=== PATIENT | female | born 2000 | race American Indian/Alaskan Native ===

== ENCOUNTER 2018-04-21 13:54 | Emergency (ER) | payer OTHER ==
[2018-04-21 14:11] VITALS: BP 121/64
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
== END 2018-04-21 18:48 | disposition home or self-care (01) ==
LOC: ED 13:54
DX: S05.8X2A Other injuries of left eye and orbit, initial encounter (principal); W51.XXXA Accidental striking against or bumped into by another person, initial encounter; Y93.89 Activity, other specified; Y92.89 Other specified places as the place of occurrence of the external cause; Y99.8 Other external cause status
CPT/HCPCS: 99282

== ENCOUNTER 2018-12-19 17:33 | Inpatient (IN) | payer MEDICAID, OTHER ==
[2018-12-19] MEDS ORDERED: BRETHINE SUB-Q PRN (18:33)
[2018-12-19] MEDS ORDERED: STADOL IV PRN (18:33)
[2018-12-19] MEDS ORDERED: ceFAZolin 2 GM in NACL 0.9% 100 ML IV ONE (18:33)
[2018-12-19] MEDS ORDERED: NARCAN 0.4 MG/1 ML IV PRN (18:33)
[2018-12-19] MEDS ORDERED: MINERAL OIL PO PRN (18:33)
[2018-12-19] MEDS ORDERED: LACTATED RINGERS 1,000 ML IV SCH ×2 (19:00)
[2018-12-19] MEDS ORDERED: ANCEF/STERILE WATER 2 GM/20 ML 2 GM/20 ML SYRINGE IV SCH (19:00)
[2018-12-19] MEDS ORDERED: XYLOCAINE 2% INFILTRATI ONE ×2 (19:00→20:00)
[2018-12-19] MEDS ORDERED: PITOCin/NS 20 UNIT/1000ML DRIP 20 UNITS/1,000 ML BAG IV SCH (19:00)
--- NOTE | 2018-12-19 19:00 | History and Physical Report ---
History of Present Illness Date of admission: 12/19/18 18:28 Chief complaint: "my water broke" History of present illness: 18yo at 38 5/7 weeks presented to L&D complaining of ruptured membranes for 2 hours. She has had NO CARE. She delivered a year ago at [facility], vaginal delivery. She was seen at [facility] at 17 weeks and found to have oligohydramnios of 3cm. She denies any problems this . Past History Past Surgical History: no surgical history Family/Genetic History: none Social history: single - Obstetrical History : 2 Number of Living Children: 1 Medications and Allergies Allergies Allergy/AdvReac Type Severity Reaction Status Date / Time No Known Allergies Allergy Unverified 04/23/18 08:44 Home Medications Medication Instructions Recorded Confirmed Last Taken Type Ciprofloxacin [Ciprofloxacin ORAL 500 mg PO Q12H #14 ml 06/01/15 Unknown Rx LIQ] Ondansetron [Zofran ODT TAB] 4 mg PO Q6H #14 tab.rapdis 06/01/15 Unknown Rx metroNIDAZOLE [Flagyl] 500 mg PO Q8HR #21 tablet 06/01/15 Unknown Rx traMADol [Ultram] 50 mg PO Q6HR PRN #14 tablet 06/01/15 Unknown Rx Acetaminophen/Codeine [Tylenol 1 tab PO Q6H PRN #12 tab 04/21/18 Unknown Rx /Codeine # 3 tab] Polymyxin B Sulf/Trimethoprim 1 drop OP QID #1 drops 04/21/18 Unknown Rx [Polytrim Eye Drops [id number]/0.1%] Active Meds: Active Medications Butorphanol Tartrate (Stadol) 1 mg IV Q2H PRN PRN Reason: Pain, Moderate (4-6) Ephedrine Sulfate (Ephedrine Sulfate) 10 mg IV Q2M PRN PRN Reason: Hypotension Lactated Ringer's (Lactated Ringers) 1,000 mls @ 125 mls/hr IV DIRECT DHRUV Oxytocin/Sodium Chloride (Pitocin/Ns 20 Unit/1000ml Drip) 20 units in 1,000 mls @ 125 mls/hr IV DIRECT DHRUV Cefazolin Sodium (Ancef/Sterile Water 2 Gm/20 Ml) 2 gm in 20 mls @ 40 mls/hr IV PREOP DHRUV Lidocaine (Xylocaine 2%) 20 ml INFILTRATI ONCE ONE Stop: 12/19/18 19:01 Mineral Oil (Mineral Oil) 30 ml PO QHS PRN PRN Reason: Constipation Naloxone HCl (Narcan 0.4 Mg/1 Ml) 0.1 mg IV Q2MIN PRN PRN Reason: Res Rate </= 8 or 02 SAT < 92% Terbutaline Sulfate (Brethine) 0.25 mg SUB-Q ONCE PRN PRN Reason: Hyperstimulation/Hypertonicity - Vital Signs Vital signs: Vital Signs Pulse BP Pulse Ox 93 H 121/67 96 12/19/18 18:09 12/19/18 18:09 12/19/18 18:09 Temp Pulse Resp BP Pulse Ox 98.3 F 89 18 121/67 97 12/19/18 18:30 12/19/18 18:29 12/19/18 18:30 12/19/18 18:09 12/19/18 18:29 - Physical Exam Vulva: both: normal - Obstetrical FHR: auscultation normal Cervical Dilatation: 6 Cervical Effacement Percentage: 90 station: -1 Results All other labs normal. Assessment and Plan This H&P was done and written by Dr. Montgomery. GBS prophylaxis given. - Patient Problems (1) 38 weeks gestation of Current Visit: Yes Status: Acute Plan to address problem: 1. No care labs 2. Augmentation of labor if no cervical change 3. Cephalic presentation 4. Plan NICU present at delivery due to history of oligohydramnios 5. UDS due to no care 6. Plan spontaneous vaginal delivery. (2) No care in current Current Visit: Yes Status: Acute (3) History of oligohydramnios Current Visit: Yes Status: Acute (4) SROM (spontaneous rupture of membranes) Current Visit: Yes Status: Acute
[2018-12-19] MEDS ORDERED: AMPICILLIN/NS 2 GM/100 ML 2 GM/100 ML BAG IV ONE ×2 (19:07→20:00)
[2018-12-19 19:25] LABS: Basophils # (Auto) 0.1 K/mm3 (0.0-0.1); Basophils % (Auto) 0.6 % (0.0-1.8); Eosinophils % (Auto) 0.4 % (0.0-4.3); Hematocrit 34.2 % (30.3-42.9); Hemoglobin 11.3 gm/dl (10.1-14.3); Lymphocytes # (Auto) 1.7 K/mm3 (1.2-5.4); Lymphocytes % (Auto) 18.6 % (13.4-35.0); Mean Corpuscular HGB Conc 33 % (30-34); Mean Corpuscular Volume 86 fl (79-97); Monocytes # (Auto) 0.6 K/mm3 (0.0-0.8); Monocytes % (Auto) 6.6 % (0.0-7.3); Platelet Count 259 K/mm3 (140-440); Red Cell Distribution Width 14.9 % (13.2-15.2)
[2018-12-19 19:50] LABS: Hepatitis C Virus Antibody Non-Reactive (NonReactive)
[2018-12-19] MEDS ORDERED: MILK OF MAGNESIA PO PRN (21:19)
[2018-12-19] MEDS ORDERED: LANSINOH TP PRN (21:19)
[2018-12-19] MEDS ORDERED: TUCKS PAD TP PRN (21:19)
[2018-12-19] MEDS ORDERED: DULCOLAX PR PRN (21:19)
--- NOTE | 2018-12-19 21:32 | Procedure Note ---
OB Delivery Note - Delivery Date of Delivery: 12/19/18 Surgeon: WILBER BOUCHER Estimated blood loss: other (250 cc) - Vaginal Delivery presentation: vertex Delivery position: OA Intrapartum events: precipitous labor- <3hr Delivery induction: none Delivery monitor: external FHT, external uterine Route of delivery: Delivery placenta: spontaneous Delivery cord: 3 umbilical vessels Episiotomy: none Delivery laceration: none Anesthesia: none Delivery comments: Precipitous spontaneous vaginal delivery of liveborn female at 21:00 over intact perineum with apgars of 8/9. Baby bulb suctioned and placed immediately skin to skin with mom after . Spontaneous cry and respirations. 3 vessel cord double clamped and cut and baby taken to radiant warmer to be evaluated by NICU team due to no care and oligohydramnios at 17 week US and no further care or ultrasounds. Spontaneous delivery of intact placenta and membranes; trailing membranes. EBL 250 cc. Pitocin to IV fluids after delivery of placenta. Fundus firm and midline. Vaginal sweep negative. Sponge count correct. No lacerations noted. Mother and baby stable in birthing room.
[2018-12-19] MEDS ORDERED: SODIUM CHLORIDE FLUSH SYRINGE 10 ML IV NR (22:00)
[2018-12-19] MEDS: IBUPROFEN PO SCH (22:12)
--- NOTE | 2018-12-19 23:28 | Ultrasound Report ---
PROCEDURE: US PELVIC LIMITED HISTORY: Check for retained placental fragments or accessor FINDINGS: Real-time ultrasound the pelvis was performed by transabdominal technique. The uterus is large measuring 20.5 x 9.4 x 7.6 cm, consistent with the patient's postgravid state. Th e endometrium is thickened at 3.6 cm. There is an echogenic region within the canal of the uterine rakesh dy, 4.2 x 3.6 x 4.1 cm which does not display color Doppler flow. This could represent blood products in the canal or retained products of conception. The absence of color Doppler flow would be more con sistent with blood products in the canal rather than retained products of conception, but definitive differentiation of these entities cannot be in ascertained with ultrasound. Neither ovary is identified. IMPRESSION: Echogenic region within the canal of uterine body, which could represent retained product of conception or blood products in the canal This document is electronically signed by Jesse Woodward MD., Dec 19 2018 11:27:08 PM ET
[2018-12-20] MEDS: METHERGINE PO SCH ×4 (01:06→18:29)
[2018-12-20] MEDS: IBUPROFEN PO SCH ×3 (03:41→18:29)
[2018-12-20 10:00] LABS: Hematocrit 35.9 % (30.3-42.9); Hemoglobin 11.6 gm/dl (10.1-14.3)
--- NOTE | 2018-12-20 11:34 | Progress Note ---
Assessment and Plan A: day 1 S/P spontaneous vaginal delivery. P: Continue with current management. - Patient Problems (1) 38 weeks gestation of Current Visit: Yes Status: Acute (2) No care in current Current Visit: Yes Status: Acute (3) History of oligohydramnios Current Visit: Yes Status: Acute (4) SROM (spontaneous rupture of membranes) Current Visit: Yes Status: Acute Subjective - Subjective Date of service: 12/20/18 Principal diagnosis: day 1 S/P spontaneous vaginal delivery Interval history: day 1 S/P spontaneous vaginal delivery. Patient is doing well. Patient had trailing membranes at delivery but placenta and membranes appeared intact and bleeding is minimal. US showed possible blood products in canal vs. retained products. No accessory lobe seen on US. Patient is voiding without difficulty, ambulating well, tolerating a regular diet without nausea or vomiting. Patient denies headache, chest pain, cough, shortness of breath, leg pain, or abdominal pain. She denies heavy bleeding or dizziness. She is taking a P.O. Methergine series. Patient reports: appetite normal, voiding normally, pain well controlled, flatus, ambulating normally, no dizzy ambulation, no nauseated : doing well Objective - Vital Signs Latest vital signs: Vital Signs Temp Pulse Resp BP BP Pulse Ox 12/20/18 08:13 98.5 F 63 18 126/68 98 12/20/18 04:47 99.2 F 67 20 128/75 95 12/19/18 23:58 98.6 F 75 20 111/65 94 12/19/18 23:24 97.9 F 12/19/18 23:06 89 113/63 12/19/18 22:52 87 117/69 12/19/18 22:37 90 133/58 12/19/18 22:22 98 H 128/67 12/19/18 22:07 99 H 132/83 12/19/18 21:52 96 H 134/71 12/19/18 21:36 100 H 134/68 12/19/18 21:22 100 H 137/73 12/19/18 19:29 84 106/58 12/19/18 19:27 98.7 F 84 16 106/58 12/19/18 18:30 98.3 F 18 12/19/18 18:29 89 97 12/19/18 18:24 108 H 96 12/19/18 18:19 90 96 12/19/18 18:14 92 H 97 12/19/18 18:09 93 H 121/67 96 Intake and Output 12/19/18 12/20/18 12/20/18 23:59 07:59 15:59 Intake Total 240 200 Output Total 500 Balance 240 -300 Intake: Oral 240 200 Output: Urine 500 Void 500 Other: Total, Intake Amount 240 200 Total, Output Amount 500 Weight 99.79 kg Estimated Blood Loss 250 - Exam Abdomen: Present: normal appearance, soft. Absent: distention, tenderness, guarding, rigidity Uterus: Present: normal, firm, fundal height below umbilicus. Absent: bogginess, tenderness Extremities: Present: normal. Absent: tenderness, edema - Labs Labs: Abnormal lab results 12/19/18 Range/Units 18:58 Seg Neutrophils % 73.8 H (40.0-70.0) %
[2018-12-21] MEDS: METHERGINE PO SCH ×4 (05:12→18:26)
[2018-12-21] MEDS: IBUPROFEN PO SCH ×4 (05:12→16:30)
--- NOTE | 2018-12-21 10:17 | Progress Note ---
Assessment and Plan - Patient Problems (1) Status post normal vaginal delivery Current Visit: Yes Status: Acute Plan to address problem: PPD 2 - stable Continue routine PP orders Anticipate discharge in 24 hours pending f/u pelvic US for retained POC. (2) Retained products of conception after delivery without hemorrhage Current Visit: Yes Status: Acute Plan to address problem: Confirmed on US done 12/19/18 Continue Methergine series (was initiated 12/20/18 @ 01:00) Repeat Pelvic US ordered Subjective - Subjective Date of service: 12/21/18 Principal diagnosis: day 1 S/P spontaneous vaginal delivery Interval history: see H&P, OB Delivery Procedure Note, and PP/REGISTERED MEDICAL TRANSCRIPTIONIST Progress Note Patient reports: appetite normal, voiding normally, pain well controlled, ambulating normally, other (reports heavy lochia without clots after taking Methergine and later moderate bleeding), no dizzy ambulation : doing well, other (breast and bottle feeding) Objective - Vital Signs Latest vital signs: Vital Signs Temp Pulse Resp BP Pulse Ox 12/21/18 07:12 97.8 F 55 L 18 135/77 12/21/18 00:35 98.1 F 55 L 18 126/75 96 12/20/18 17:10 98.1 F 65 18 139/85 97 12/20/18 12:05 98.9 F 63 18 119/81 96 Intake and Output 12/20/18 12/21/18 12/21/18 23:59 07:59 15:59 Intake Total 240 600 Balance 240 600 Intake: Oral 360 Intake, Free Water 240 240 Other: Total, Intake Amount 360 # Voids Void 2 2 - Exam Cardiovascular: Present: Regular rate Lungs: Present: Clear to auscultation Abdomen: Present: normal appearance, soft Vulva: both: normal Uterus: Present: normal, firm, fundal height at umbilicus Extremities: Present: normal Comments: moderate lochia
[2018-12-22] MEDS: METHERGINE PO SCH (00:10)
[2018-12-22] MEDS: IBUPROFEN PO SCH ×2 (00:11→10:07)
--- NOTE | 2018-12-22 09:13 | Progress Note ---
Assessment and Plan - Patient Problems (1) Status post normal vaginal delivery Current Visit: Yes Status: Acute Plan to address problem: Discharge later today F/u at office for routine PPV in 6 wks or prn Continue vitamins (2) Retained products of conception after delivery without hemorrhage Current Visit: Yes Status: Acute Plan to address problem: Reviewed hemorrhage precautions Notify office for any severe cramping or excessive bleeding Pt verbalized understanding and agrees with POC Subjective - Subjective Date of service: 12/22/18 (909) Principal diagnosis: day 3 S/P spontaneous vaginal delivery Interval history: See admission H & P; OB delivery summary and PP progress notes Patient reports: appetite normal, voiding normally, pain well controlled, flatus, bowel movement, ambulating normally : doing well, bottle feeding (and ) Objective - Vital Signs Latest vital signs: Vital Signs Temp Pulse Resp BP BP Pulse Ox 12/21/18 23:45 98.5 F 59 L 20 123/67 97 12/21/18 16:28 97.5 F L 61 18 121/68 Intake and Output 12/21/18 12/22/18 12/22/18 23:59 07:59 15:59 Intake Total 480 240 Balance 480 240 Intake: Oral 480 240 Other: Total, Intake Amount 480 240 # Voids Void 1 1 - Exam Breasts: Present: normal Cardiovascular: Present: Regular rate Lungs: Present: Normal air movement Abdomen: Present: soft, normal bowel sounds Uterus: Present: firm, fundal height below umbilicus (U-2) Extremities: Present: normal Deep Tendon Reflex Grade: Normal +2
--- NOTE | 2018-12-22 09:21 | Discharge Summary ---
<VIGNESH MCDANIELSTERRELLNAOMIE Jet - Last Filed: 12/22/18 09:25> Providers - Providers Date of Admission: 12/19/18 18:28 Date of discharge: 12/22/18 (1500) Attending physician: ZURI GILLILAND Primary care physician: ZURI GILLILAND Hospitalization Reason for admission: active labor Delivery: Episiotomy: none Laceration: none Other procedures: none complications: other (retained products of conception) Discharge diagnosis: IUP at term delivered [place] baby: female Pertinent studies: pelvic U/S Hospital course: See admission H & P; OB delivery summary; pelvic U/S reports; and PP progress reports Condition at discharge: Stable Disposition: DC-01 TO HOME OR SELFCARE - Discharge Diagnoses (1) Status post normal vaginal delivery Status: Acute (2) Retained products of conception after delivery without hemorrhage Status: Acute Comment: May d/c home today pending normal pelvic U/S completed 12/21/18. Plan - Discharge Medications Prescriptions: Acetaminophen/Codeine [Tylenol /Codeine # 3 tab] 1 tab PO Q6H PRN #20 tab PRN Reason: Pain , Severe (7-10) - Provider Discharge Summary Activity: routine, no sex for 6 weeks, no heavy lifting 4 weeks, no strenuous exercise Diet: routine Instructions: routine Additional instructions: [] Smoking cessation referral if applicable(refer to patient education folder for contact #) [] Refer to [facility]'s [facility] Booklet Call your doctor immediately for: * Fever > 100.5 * Heavy vaginal bleeding ( >1 pad per hour) * Severe persistent headache * Shortness of breath * Reddened, hot, painful area to leg or breast * Drainage or odor from incision. - Follow up plan Follow up: ZURI GILLILAND MD [Primary Care Provider] - 6 Weeks <ZURI GILLILAND - Last Filed: 12/24/18 19:01> Providers - Providers Date of Admission: 12/19/18 18:28 Attending physician: ZURI GILLILAND Primary care physician: ZURI GILLILAND Hospitalization - Discharge Diagnoses (1) Retained products of conception after delivery without hemorrhage Status: Acute Comment: s/p D&C during same admission for retained products of conception. Recovered well post-op. Bleeding well controlled. Plan - Provider Discharge Summary Additional instructions: [] Smoking cessation referral if applicable(refer to patient education folder for contact #) [] Refer to [facility]'s [facility] Booklet Call your doctor immediately for: * Fever > 100.5 * Heavy vaginal bleeding ( >1 pad per hour) * Severe persistent headache * Shortness of breath * Reddened, hot, painful area to leg or breast * Drainage or odor from incision. * Keep incision clean and dry at all times and follow doctor's instructions regarding bathing/showering
--- NOTE | 2018-12-22 09:30 | Ultrasound Report ---
Pelvic sonogram: Compared to 12/19/18. History: Followup of retained products of symptoms. Findings: Uterus measures 20.7 x 9.3 x 10.5 cm. Markedly thickened endometrium. At the level of the uterine body the endometrium thickness is 4.7 cm and at the lower uterine segment is 3.2 cm. Right ovary 4.4 x 1.7 x 2.8 cm. No mass. Left ovary 5.2 x 3.3 x 4.5 cm. No mass. Impression: Findings as detailed above. Followup recommended .
--- NOTE | 2018-12-22 10:13 | Progress Note ---
Assessment and Plan - Patient Problems (1) Retained products of conception after delivery without hemorrhage Current Visit: Yes Status: Acute Plan to address problem: Therefore recommend suction D&C to remove retained products, thickened endometrium. Patient is amendable. Risks including but not limited to bleeding, infection, need for blood transfusion and/or hysterectomy discussed with patient and informed consent signed. Doxycycline 200mg IV quality control assistant to OR. Patient last ate at 9am. Spoke with OR/Dr. Carreno and will await 6hrs before starting surgery. Plan Suction D&C for retained products of conception. Subjective - Subjective Principal diagnosis: day 3 S/P spontaneous vaginal delivery Interval history: Chart reviewed. Retained products of conception remain despite medical management. Endometrial stripe 4.2-4.7cm Patient states she's passed small quarter size clots, one after last US. Objective - Vital Signs Latest vital signs: Vital Signs Temp Pulse Resp BP BP Pulse Ox 12/22/18 10:07 17 12/21/18 23:45 98.5 F 59 L 20 123/67 97 12/21/18 16:28 97.5 F L 61 18 121/68 Intake and Output 12/21/18 12/22/18 12/22/18 23:59 07:59 15:59 Intake Total 480 240 Balance 480 240 Intake: Oral 480 240 Other: Total, Intake Amount 480 240 # Voids Void 1 1
[2018-12-22] MEDS ORDERED: PEPCID IV SCH (10:26)
[2018-12-22] MEDS ORDERED: REGLAN IV SCH (10:26)
[2018-12-22] MEDS ORDERED: BICITRA PO SCH (10:26)
[2018-12-22] MEDS ORDERED: SILVER NITRATE TP ONE ×2 (13:35→15:08)
[2018-12-22] MEDS ORDERED: METHERGINE IM ONE ×2 (13:36→15:08)
[2018-12-22] MEDS ORDERED: XYLOCAINE MPF 2% ONE (13:37)
[2018-12-22] MEDS ORDERED: ZOFRAN ONE ×2 (13:37→15:20)
[2018-12-22] MEDS ORDERED: DECADRON ONE (13:37)
[2018-12-22] MEDS ORDERED: DIPRIVAN 10 MG/ML IV ONE ×2 (13:38→15:25)
[2018-12-22] MEDS ORDERED: TORADOL ONE ×2 (13:38→16:22)
[2018-12-22] MEDS ORDERED: SUBLIMAZE ONE ×2 (13:38→15:25)
[2018-12-22] MEDS ORDERED: LACTATED RINGERS 1,000 ML ONE (14:39)
[2018-12-22] MEDS ORDERED: QUELICIN ONE ×2 (14:42→15:25)
[2018-12-22] MEDS ORDERED: DILAUDID IV PRN (14:49)
--- NOTE | 2018-12-22 14:49 | Anesthesia Consultation ---
Anesthesia Consult and Med Hx Date of service: 12/22/18 - Airway Anesthetic Teeth Evaluation: Good ROM Head & Neck: Adequate Mental/Hyoid Distance: Adequate Mallampati Class: Class III Intubation Access Assessment: Possibly Difficult - Pulmonary Exam CTA: Yes - Cardiac Exam Cardiac Exam: RRR - Pre-Operative Health Status ASA Pre-Surgery Classification: ASA3 Proposed Anesthetic Plan: General - Pulmonary Hx Smoking: No - Cardiovascular System Hx Hypertension: No Hx Heart Attack/AMI: No - Central Nervous System Hx Seizures: No CVA: No Hx Psychiatric Problems: No - Gastrointestinal Hx Gastroesophageal Reflux Disease: No - Endocrine Hx Renal Disease: No Hx Liver Disease: No Hx Insulin Dependent Diabetes: No Hx Non-Insulin Dependent Diabetes: No Hx Thyroid Disease: No - Hematic Hx Anemia: Yes - Other Systems Hx Alcohol Use: No Hx Obesity: Yes
--- NOTE | 2018-12-22 14:49 | Anesthesia Day of Surgery ---
Anesthesia Day of Surgery - Day of Surgery Patient Examined: Yes Patient H&P Reviewed: Yes Patient is NPO: Yes
[2018-12-22] MEDS: LACTATED RINGERS 1,000 ML IV SCH ×2 (14:50→20:13)
[2018-12-22] MEDS ORDERED: VERSED IV NR (15:00)
[2018-12-22] MEDS ORDERED: BLOXIVERZ ONE (15:25)
[2018-12-22] MEDS ORDERED: ZEMURON IV ONE (15:25)
[2018-12-22] MEDS ORDERED: ROBINUL ONE (15:25)
[2018-12-22] MEDS ORDERED: DOXYCYCLINE HYCLATE 200 MG in NACL 0.9% 250ML 250 ML IV SCH ×2 (16:00→17:00)
[2018-12-22] MEDS ORDERED: CYTOTEC PR ONE ×3 (16:00→18:00)
--- NOTE | 2018-12-22 17:10 | Operative Report ---
Operative Report Operative Report: DATE OF SURGERY: 12/22/18 PREOP Diagnosis 1. Retained products of conception PREOP Diagnosis 1. Retained products of conception 2. Superficial wound perineal breakdown Procedure: 1. Suction Dilatation and Curettage 2. Repair of second degree perineal laceration Findings 1. Retained products of conception 2. enlarged uterus below umbilicus Surgeon 1. Chelsea Montgomery MD Anesthesia: 1. General Specimens removed: 1. Products of conception Complications: none Disposition: Patient taken to recovery room in stable condition INDICATIONS: The patient is a 18yo s/p spontaneous vaginal delivery 12/19/18. She had no care. After delivery there was concern for retained products of conception so two ultrasounds were done revealing a >4cm echogenic uterine blood products vs retained products of conception. The patient recalls passing some clots as well. She had received methergine and the ultrasound uterine contents remained relatively unchanged. Therefore the recommendation to surgically remove products with suction D&C was made. The patient agreed. The patient was consented and the risks including but not limited to bleeding, infection, injury to surrounding organs and uterine perforation were discussed. All questions were answered and informed consent signed. PROCEDURE: The patient was taken to OR12 in stable condition. She was placed in the supine position. She received Doxycycline 200mg IV and wore SCDs. Adequate anesthesia was achieved and the patient was placed in the dorsal lithotomy position using Abhishek Stirrups.The patient was draped in the routine sterile fashion and a timeout was done. A red rubber was used to drain the bladder. A sterile speculum was placed per vagina and single-toothed tenaculum placed on the anterior lip of the cervix. A #10 curved cannula was then connected to the suction canister. Adequate pressure was achieved with the suction. The cannula was then placed through the cervical os and products of conception was collected. A #2 sharp curette was used to ensure the uterus was gritty in all 4 quadrants. Speculum and tenaculum were removed and noted to be hemostatic. A 3-0 Vicryl suture was then used to reinforce the second degree perineal laceration that had begun to breakdown. The tissue was pink and well vascularized with no signs of infection. Misoprostol 800mcg was placed rectally and the case was ended. All counts were correct. The patient tolerated the procedure well and was awakened from anesthesia and taken to PACU.
[2018-12-22] MEDS: NORCO 5/325 PO PRN (20:14)
[2018-12-23] MEDS: IBUPROFEN PO SCH ×3 (00:16→09:31)
[2018-12-23] MEDS: NORCO 5/325 PO PRN (04:48)
[2018-12-23 14:16] VITALS: BP 119/74
== END 2018-12-23 15:34 | disposition home or self-care (01) | DRG 807 ==
LOC: TRG 17:33 → LD 18:28 → OB 12-20 00:07
PROVIDERS: ADMIT Obstetrics & Gynecology; ATTEND Obstetrics & Gynecology
PROC: 10E0XZZ Delivery of Products of Conception, External Approach (ICD-10-PCS; principal; 2018-12-19)
PROC: 10D17Z9 Manual Extraction of Products of Conception, Retained, Via Natural or Artificial Opening (ICD-10-PCS; 2018-12-22)
DX: O62.3 Precipitate labor (principal); Z37.0 Single live birth; O99.214 Obesity complicating childbirth; E66.01 Morbid (severe) obesity due to excess calories; Z3A.38 38 weeks gestation of pregnancy; O73.1 Retained portions of placenta and membranes, without hemorrhage; O90.89 Other complications of the puerperium, not elsewhere classified; S30.95XA Unspecified superficial injury of vagina and vulva, initial encounter; X58.XXXA Exposure to other specified factors, initial encounter; Y93.89 Activity, other specified; Y92.89 Other specified places as the place of occurrence of the external cause; Y99.8 Other external cause status
CPT/HCPCS: 36415; 76856; 76857; 85014; 85018; 85025; 86592; 86706; 86762; 86803; 86850; 86900; 86901; 87806; 88305; G0378; J0290; J0330; J0595; J0690; J1100; J1885; J2210; J2250; J2405; J2590; J2704; J2710; J2765; J3010; J7050; J7120